=== PATIENT | male | born 1980 | race Caucasian/White ===

== ENCOUNTER 2016-12-24 18:52 | Emergency (ER) | payer MEDICAID ==
[2016-12-24] MEDS ORDERED: ONDANSETRON HCL INJ/PF 4 MG/2 ML SDV IV ONE (19:37)
[2016-12-24] MEDS ORDERED: NORMAL SALINE 1000 ML 1,000 ML IV ONE (19:37)
--- NOTE | 2016-12-24 19:42 | ER Document Report ---
ED Medical Screen (RME) - General Chief Complaint: General Weakness Stated Complaint: WEAKNESS Time Seen by Provider: 12/24/16 19:32 Notes: 36-year-old male patient with stage IV colon cancer, last chemo about 3 weeks ago. Has a Port-A-Cath and an ileostomy. He is here on vacation from [facility] family. He was supposed to be on chemo this week but took a week off to come on vacation. He reports onset Thursday evening 12/19/2016 of feeling weak all over with no appetite. He did vomit twice Thursday evening. There has been no fever. I have greeted and performed a rapid initial assessment of this patient. A comprehensive ED assessment and evaluation of the patient, analysis of test results and completion of the medical decision making process will be conducted by additional ED providers. TRAVEL OUTSIDE OF THE [place] IN LAST 30 DAYS: No - Related Data Allergies/Adverse Reactions: Penicillins Allergy (Verified 12/24/16 19:21) Past Medical History Renal/ Medical History: Denies: Hx Peritoneal Dialysis Physical Exam - Vital signs Vitals: Temp Pulse Resp BP Pulse Ox 98.4 F 99 22 H 137/88 H 98 12/24/16 19:19 12/24/16 19:19 12/24/16 19:19 12/24/16 19:19 12/24/16 19:19 Course - Vital Signs Vital signs: Temp Pulse Resp BP Pulse Ox 98.4 F 99 22 H 137/88 H 98 12/24/16 19:19 12/24/16 19:19 12/24/16 19:19 12/24/16 19:19 12/24/16 19:19
--- NOTE | 2016-12-24 20:09 | ER Document Report ---
ED General - General Chief Complaint: General Weakness Stated Complaint: WEAKNESS Time Seen by Provider: 12/24/16 19:32 Notes: Mc is a 36-year-old male with stage IV advanced colon cancer metastatic currently on chemo last dose was 3 weeks ago he is due this week. He is vacationing from [place]. He complains of generalized weakness onset 2 days ago worsening and associated with anorexia and nausea. He denies fevers sore throat cough shortness of breath. He has a port in the left upper chest. TRAVEL OUTSIDE OF THE [place] IN LAST 30 DAYS: No - Related Data Allergies/Adverse Reactions: Penicillins Allergy (Verified 12/24/16 19:21) Past Medical History - Social History Smoking Status: Current Every Day Smoker Family History: None Patient has suicidal ideation: No Patient has homicidal ideation: No Renal/ Medical History: Denies: Hx Peritoneal Dialysis Review of Systems - Review of Systems Notes: REVIEW OF SYSTEMS GEN: Generalized weakness no fever ENT: Denies sore throat, nasal discharge, ear pain EYES: Denies blurry vision, eye pain, discharge CV: Denies chest pain, palpitations, edema RESP: Denies cough, shortness of breath, wheezing GI: Denies abdominal pain, nausea, vomiting, diarrhea MSK: Denies joint pain/swelling, edema, SKIN: Denies rash, skin lesions LYMPH: Denies swollen glands/lymph nodes NEURO: Denies headache, focal weakness or numbness, dizziness PSYCH: Denies depression, suicidal or homicidal ideation PHYSICAL EXAMINATION General: No acute distress, well-nourished Head: Atraumatic, normocephalic ENT: Mouth normal, oropharynx moist, no exudates or tonsillar enlargement Eyes: Conjunctiva normal, pupils equal, lids normal Neck: No JVD, supple, no guarding CVS: Normal rate, regular rhythm, no murmurs. Left upper chest wall porch nontender and intact. Resp: No resp distress, equal and normal breath sounds bilaterally GI: Nondistended, soft, no tenderness to palpation, no rebound or guarding Ext: No deformities, no edema, normal range of motion in upper and lower ext Back: No CVA or midline TTP Skin: No rash, warm Lymphatic: No lymphadeopathy noted Neuro: Awake, alert. Face symmetric. GCS 15. Physical Exam - Vital signs Vitals: Temp Pulse Resp BP Pulse Ox 98.4 F 99 22 H 137/88 H 98 12/24/16 19:19 12/24/16 19:19 12/24/16 19:19 12/24/16 19:19 12/24/16 19:19 Course - Re-evaluation Re-evalutation: This is a well-appearing 36-year-old male with advanced colon cancer 3 weeks out from chemotherapy who presents with malaise and nausea. His ostomy output is constant, his abdominal exam is reassuring and he has no signs of bacterial illness on exam. Port is intact. Differential includes dehydration R abnormality is less likely neutropenia. Labs, fluids, Zofran. Reassessment. 20:08 12/24/16 21:50 12/24/16 22:06 Reassessed patient at 10 PM. His labs are all normal including white count. He does not appear dehydrated. At one point he was having pain in his legs and back which is chronic for him and I gave him IV Dilaudid which made it much better. He is comfortable going home knowing that his blood cultures are pending. He is aware of return precautions and his family all agree with the plan. I have discussed with the patient there likely diagnosis, aftercare plan, follow -up plans and my usual and customary return precautions. They verbalized understanding of this. - Vital Signs Vital signs: Temp Pulse Resp BP Pulse Ox 98.4 F 99 22 H 137/88 H 98 12/24/16 19:19 12/24/16 19:19 12/24/16 19:19 12/24/16 19:19 12/24/16 19:19 - Laboratory Result Diagrams: 12/24/16 20:45 12/24/16 20:45 Laboratory results interpreted by me: 12/24/16 12/24/16 20:45 20:45 Hgb 11.4 L Hct 35.0 L MCV 78 L MCH 25.5 L RDW 16.8 H Seg Neutrophils % 80.4 H Lymphocytes % 10.9 L Alkaline Phosphatase 227 H - Diagnostic Test Radiology reviewed: Image reviewed, Reports reviewed Discharge - Discharge Clinical Impression: Malaise Condition: Good Disposition: HOME, SELF-CARE Additional Instructions: 6 he was seen in the emergency department for not feeling well. He did not have a fever of your blood counts were all very normal. He was given hydration and pain control. It is safe for you to be discharged but you should follow-up with your oncologist within 2-3 days. Please return to the ER for any fever, chills difficulty swallowing breathing coughing worsening abdominal pain or decreased output from her stoma.
[2016-12-24] MEDS ORDERED: HYDROMORPHONE HCL INJ/PF 2 MG/ML AMPULE IV ONE (20:37)
--- NOTE | 2016-12-24 20:57 | RADIOLOGY REPORT (SQ) ---
EXAM DESCRIPTION: CHEST SINGLE VIEW COMPLETED DATE/TIME: 12/24/2016 8:47 pm REASON FOR STUDY: malaise r/o PNA COMPARISON: None. EXAM PARAMETERS: NUMBER OF VIEWS: One view. TECHNIQUE: Single frontal radiographic view of the chest acquired. RADIATION DOSE: NA LIMITATIONS: None. FINDINGS: LUNGS AND PLEURA: No opacities, masses or pneumothorax. No pleural effusion. MEDIASTINUM AND HILAR STRUCTURES: No masses. Contour normal. HEART AND VASCULAR STRUCTURES: Heart normal in size. Normal vasculature. BONES: No acute findings. HARDWARE: [id number] is in place. OTHER: No other significant finding. IMPRESSION: NO ACUTE RADIOGRAPHIC FINDING IN THE CHEST. TECHNICAL DOCUMENTATION: JOB ID: [id number]
[2016-12-24 21:14] LABS: ABSOLUTE EOSINOPHILS # (AUTO) 0.1 10^3/uL (0.0-0.6); ABSOLUTE LYMPHOCYTES (AUTO) 1.1 10^3/uL (0.5-4.7); ABSOLUTE MONOCYTES (AUTO) 0.7 10^3/uL (0.1-1.4); ABSOLUTE NEUT (AUTO) 7.9 10^3/uL (1.7-8.2); BASOPHILS % (AUTO) 0.2 % (0-2); EOSINOPHILS % (AUTO) 1.1 % (0-6); HEMOGLOBIN 11.4 g/dL (13.5-17.0); HGB HCT DIFFERENCE -0.8; LYMPHOCYTES % (AUTO) 10.9 % (13-45); MEAN CORPUSCULAR HEMOGLOBIN 25.5 pg (27.0-33.4); MEAN CORPUSCULAR HGB CONC 32.6 g/dL (32.0-36.0); MEAN CORPUSCULAR VOLUME 78 fl (80-97); MONOCYTES % (AUTO) 7.4 % (3-13); RED BLOOD COUNT 4.48 10^6/uL (4.35-5.55); RED CELL DISTRIBUTION WIDTH 16.8 % (11.5-14.0); SEGMENTED NEUTROPHILS % (AUTO) 80.4 % (42-78); WHITE BLOOD COUNT 9.8 10^3/uL (4.0-10.5)
[2016-12-24 21:38] LABS: ALANINE AMINOTRANSFERASE 26 U/L (21-72); ALBUMIN 3.9 g/dL (3.5-5.0); ALKALINE PHOSPHATASE 227 U/L (38-126); ANION GAP 11 (5-19); ASPARTATE AMINO TRANSFERASE 22 U/L (17-59); BILIRUBIN,DIRECT 0.4 mg/dL (0.0-0.4); BILIRUBIN,TOTAL 0.7 mg/dL (0.2-1.3); BLOOD UREA NITROGEN 12 mg/dL (7-20); CALCIUM 9.4 mg/dL (8.4-10.2); CARBON DIOXIDE 30 mmol/L (22-30); CHLORIDE 99 mmol/L (98-107); CREATININE RESULT 0.81 mg/dL (0.52-1.25); GLUCOSE 96 mg/dL (75-110); POTASSIUM 4.3 mmol/L (3.6-5.0); SODIUM 140.4 mmol/L (137-145); TOTAL PROTEIN 7.4 g/dL (6.3-8.2)
[2016-12-24 23:03] VITALS: BP 125/85
== END 2016-12-24 23:03 | disposition home or self-care (01) ==
LOC: ER 18:52
DX: R53.81 Other malaise (principal); C78.5 Secondary malignant neoplasm of large intestine and rectum; Z79.899 Other long term (current) drug therapy; R53.1 Weakness; R11.0 Nausea; R63.0 Anorexia; M79.606 Pain in leg, unspecified; M54.9 Dorsalgia, unspecified; F17.200 Nicotine dependence, unspecified, uncomplicated; Z88.0 Allergy status to penicillin; G89.29 Other chronic pain
CPT/HCPCS: 36591; 99285; 96361; 96374; 96375; 36415; 87040; 85025; 80053; 71010; J1170; J2405; J7030